=== PATIENT | female | born 1980 | race Caucasian/White ===

== ENCOUNTER 2017-09-08 10:33 | Emergency (ER) | payer OTHER ==
[~2017-09-08] VITALS: Ht 162.6 cm; Wt 52.2 kg
[~2017-09-08 10:33] MED LIST: DOXYCYCLINE HY100 MG PO; FLAGYL500 MG PO; NORCO 5-325 TA1 EACH PO
[2017-09-08] MEDS ORDERED: OXYCODONE HCL5 MG PO (13:00)
[2017-09-08] MEDS ORDERED: CEFACLOR500 MG PO (13:00)
[2017-09-08] MEDS ORDERED: PROVENTIL HFA6.7 GM INH (13:00)
== END 2017-09-08 14:56 | disposition home or self-care (01) ==
LOC: ED 10:33
DX: N39.0 Urinary tract infection, site not specified (principal); N20.0 Calculus of kidney; G35 Multiple sclerosis; F17.200 Nicotine dependence, unspecified, uncomplicated; Z98.51 Tubal ligation status; Z90.49 Acquired absence of other specified parts of digestive tract; Z88.0 Allergy status to penicillin; Z88.5 Allergy status to narcotic agent
CPT/HCPCS: 71020; 74176; 80053; 81001; 83690; 85025; 87088; 94640; 99283; G0480

== ENCOUNTER 2017-11-30 04:28 | Emergency (ER) | payer OTHER ==
[~2017-11-30] VITALS: Ht 162.6 cm; Wt 52.2 kg
[~2017-11-30 04:28] MED LIST changes: +CEFACLOR500 MG PO; +OXYCODONE HCL5 MG PO; +PROVENTIL HFA6.7 GM INH
== END 2017-11-30 05:21 | disposition home or self-care (01) ==
LOC: ED 04:28
DX: K52.9 Noninfective gastroenteritis and colitis, unspecified (principal); F17.200 Nicotine dependence, unspecified, uncomplicated; Z88.0 Allergy status to penicillin; Z88.5 Allergy status to narcotic agent
CPT/HCPCS: 99282

== ENCOUNTER 2021-02-09 06:52 | Emergency (ER) | payer OTHER ==
[~2021-02-09] VITALS: Ht 162.6 cm; Wt 59.0 kg
--- OUTSIDE RECORDS SUMMARY | 2021-02-09 06:58 | XMS ---
PreManage Notification: IVAN MALLOY Security Inspector Balance Wheel Motion Events No recent Security Events currently on file CRITERIA MET - Group Notification CARE PROVIDERS There are no care providers on record at this time. Iron has no Care Guidelines for this patient. Kalina VISIT COUNT (12 MO.) 1 [facility] TOTAL 1 NOTE: Visits indicate total known visits. ED/C VISIT TRACKING (12 MO.) 02/09/2021 06:53 [facility] [place] TYPE: Emergency COMPLAINT: - L SIDE ABD PAIN INPATIENT VISIT TRACKING (12 MO.) No inpatient visits to display in this time frame [id number]
[2021-02-09] MEDS ORDERED: CEPHALEXIN500 M1 PO (09:21)
[2021-02-09] MEDS ORDERED: NAPROSYN500 MG PO (09:26)
== END 2021-02-09 09:48 | disposition home or self-care (01) ==
LOC: ED 06:52
DX: N39.0 Urinary tract infection, site not specified (principal); F17.200 Nicotine dependence, unspecified, uncomplicated; Z88.0 Allergy status to penicillin; Z88.5 Allergy status to narcotic agent
CPT/HCPCS: 71046; 80053; 81001; 83690; 85025; 99284-25; J7030

== ENCOUNTER 2021-02-24 08:59 | Emergency (ER) | payer OTHER ==
[~2021-02-24] VITALS: Ht 162.6 cm; Wt 59.0 kg
[~2021-02-24 08:59] MED LIST changes: +CEPHALEXIN500 M1 PO; +NAPROSYN500 MG PO
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
[2021-02-24] MEDS ORDERED: PROTONIX40 MG PO (15:28)
[2021-02-24] MEDS ORDERED: ZOFRAN4 MG PO (15:28)
[2021-02-24] MEDS ORDERED: KLONOPIN0.5 MG PO (15:28)
[2021-02-24] MEDS ORDERED: PREDNISONE20 MG PO (15:28)
== END 2021-02-24 15:37 | disposition home or self-care (01) ==
LOC: ED 08:59
DX: G35 Multiple sclerosis (principal); F17.200 Nicotine dependence, unspecified, uncomplicated; Z88.0 Allergy status to penicillin; Z88.5 Allergy status to narcotic agent
CPT/HCPCS: 70553; 72148; 80053; 81001; 85025; 99284-25; A9577

== ENCOUNTER 2023-02-22 09:30 | Emergency (ER) | payer OTHER ==
[~2023-02-22] VITALS: Ht 162.6 cm; Wt 59.0 kg
[~2023-02-22 09:30] MED LIST changes: +KLONOPIN0.5 MG PO; +PREDNISONE20 MG PO; +PROTONIX40 MG PO; +ZOFRAN4 MG PO
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
[2023-02-22] MEDS ORDERED: DOXYCYCLINE HY100 MG PO (13:25)
[2023-02-22 13:50] VITALS: BP 121/86
== END 2023-02-22 13:51 | disposition home or self-care (01) ==
LOC: ED 09:30
DX: T74.21XA Adult sexual abuse, confirmed, initial encounter (principal); F17.200 Nicotine dependence, unspecified, uncomplicated; Z88.0 Allergy status to penicillin; Z88.5 Allergy status to narcotic agent; Z79.899 Other long term (current) drug therapy; Z79.52 Long term (current) use of systemic steroids
CPT/HCPCS: 84703; 96372; 99285; J0696

== ENCOUNTER 2023-02-25 19:02 | Emergency (ER) | payer OTHER ==
[~2023-02-25] VITALS: Ht 162.6 cm; Wt 71.2 kg
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
[2023-02-25] MEDS ORDERED: ARIPIPRAZOLE5 MG PO (19:09)
[2023-02-25] MEDS ORDERED: HYDROXYZINE PAM25 MG PO (19:10)
[2023-02-25] MEDS ORDERED: TRAZODONE HCL100 MG PO (19:10)
[2023-02-25] MEDS ORDERED: [UNRECOGNIZED DRUG - OTHER] PO (19:10)
[2023-02-25] MEDS ORDERED: IBU800 MG PO (20:00)
[2023-02-25 20:27] VITALS: BP 115/73
== END 2023-02-25 20:28 | disposition home or self-care (01) ==
LOC: ED 19:02
DX: M79.604 Pain in right leg (principal); F17.200 Nicotine dependence, unspecified, uncomplicated; Z88.0 Allergy status to penicillin; Z88.5 Allergy status to narcotic agent; Z79.899 Other long term (current) drug therapy
CPT/HCPCS: 36415; 80053; 81001; 84703; 85025; A9270; J7121

== ENCOUNTER 2024-04-13 17:05 | Emergency (ER) | payer OTHER ==
[~2024-04-13] VITALS: Ht 162.6 cm; Wt 71.8 kg
[~2024-04-13 17:05] MED LIST changes: +ARIPIPRAZOLE5 MG PO; +HYDROXYZINE PAM25 MG PO; +IBU800 MG PO; +TRAZODONE HCL100 MG PO; +[UNRECOGNIZED DRUG - OTHER] PO
[2024-04-13] MEDS ORDERED: QUETIAPINE FUMA50 MG PO (18:32)
[2024-04-13] MEDS ORDERED: DIPHTH,PERTUSS(ACELL),TET VAC 0.5 ML SYRINGE IM ONE (20:00)
[2024-04-13] MEDS ORDERED: CLEOCIN HCL300 MG PO (22:05)
[2024-04-13] MEDS ORDERED: clindamycin HCL 300 MG CAP PO ONE (22:15)
[2024-04-13 23:13] VITALS: BP 110/68
== END 2024-04-13 23:14 | disposition home or self-care (01) ==
LOC: ED 17:05
DX: S00.81XA Abrasion of other part of head, initial encounter (principal); S80.812A Abrasion, left lower leg, initial encounter; S80.212A Abrasion, left knee, initial encounter; K04.7 Periapical abscess without sinus; F17.200 Nicotine dependence, unspecified, uncomplicated; W17.89XA Other fall from one level to another, initial encounter; Z88.0 Allergy status to penicillin; Z88.5 Allergy status to narcotic agent; Z79.899 Other long term (current) drug therapy
CPT/HCPCS: 70450; 70486; 72125; 73560; 90715